=== PATIENT | female | born 1950 | race Caucasian/White ===

== ENCOUNTER 2017-06-13 12:18 | Observation (INO) ==
--- NOTE | 2017-06-13 12:39 | Emergency Department Note ---
Disposition Clinical Impression: Chest pain Qualifiers: Chest pain type: unspecified Qualified Code(s): R07.9 - Chest pain, unspecified Disposition: Admitted As Inpatient Condition: Good Chest Pain HPI - General Chief Complaint: ED Abdominal Pain Stated Complaint: abd pain/back pain Time Seen by Provider: 06/13/17 12:26 Source: patient, family Mode of arrival: private vehicle Limitations: no limitations Vital Signs Reviewed: Yes Nursing Notes Reviewed: Yes - History of Present Illness HPI Narrative: 66-year-old female history of hyperlipidemia, status post trigger finger repair yesterday who presents to the ER via private vehicle due to chest pain. Patient states that she woke up this morning with pain underneath her breasts. States that it felt like some pressure and radiated around to her back. She denies any injury. Denies a prior history of this. States she had a stress test within maybe the last 5 years that was normal just for physical. She reports that at worst it was 8/10 and now is 5/10 without any intervention. She did notice that she felt lightheaded, dizzy and broke onto a sweat when it started. Denies prior history of CAD. No nausea vomiting or diarrhea. No abdominal pain. No other complaints. Pt complaint: chest pain Onset (ago): hour(s) Duration: constant Onset: during rest Pain Location: substernal Severity scale (1-10): 6 Quality: heaviness Pain Radiation: back Improves with: nothing Worsens with: nothing Associated symptoms: Reports: diaphoresis, dyspnea. Denies: nausea, vomiting Treatments prior to arrival chest pain: none - Related Data On Oral Contraceptives: No Home Medications Medication Instructions Recorded Confirmed Aspirin Enteric Coated [Aspirin EC] 81 mg PO QPM 01/23/15 01/23/15 Citalopram [CeleXA] 20 mg PO QPM 01/23/15 01/23/15 Omeprazole [PriLOSEC] 20 mg PO QPM 01/23/15 01/23/15 Previous Rx's Medication Instructions Recorded Fenofibrate [Tricor] 54 mg PO DAILY #30 tablet 01/27/15 MetroNIDAZOLE [Flagyl] 250 mg PO TID #6 tablet 01/27/15 Ondansetron ODT [Zofran ODT] 4 mg SL Q4HR #7 tab.rapdis 01/27/15 OxyCODONE/APAP 5/325 [Percocet 1 each PO Q4HR #5 tablet 01/27/15 5/325] HYDROcodone/Acet 5/325 mg [[place] 1 tab PO Q6H PRN #12 tab 06/12/17 5-325 mg] Allergies Allergy/AdvReac Type Severity Reaction Status Date / Time No Known Allergies Allergy Verified 06/13/17 12:20 All systems ED: reviewed and negative except as stated. Constitutional: Denies: fever Cardiovascular: Reports: chest pain Respiratory: Reports: dyspnea. Denies: cough Gastrointestinal: Denies: abdominal pain, nausea, vomiting, diarrhea Chest Pain PMH - Past Medical History Medical history: Reports: GERD, hyperlipidemia Surgical history: Reports: cholecystectomy, other Psychiatric history: Reports: no psych history MANAGER QUANTITATIVE history: Reports: no MANAGER QUANTITATIVE history - Social History Smoking Status: Never smoker Alcohol use: Reports: none Drug use: Reports: none Physical Exam - General Limitations: no limitations General appearance: alert, in no apparent distress - Head Head exam: atraumatic, normocephalic - Eye Eye exam: Present: normal appearance - ENT ENT exam: normal exam - Neck Neck exam: Present: normal inspection - Chest Chest inspection: Present: normal inspection, symmetric chest wall rise - Respiratory Respiratory exam: Present: normal lung sounds bilaterally - Cardiovascular Cardiovascular exam: Present: regular rate, normal rhythm, normal heart sounds - Abdominal Exam Abdominal exam: Present: soft, Non-Tender. Absent: tenderness - Extremities Exam Extremities exam: Present: normal inspection, full ROM - Expanded Upper Extremity Exam Shoulder exam: Present: normal inspection, full ROM Arm exam: Present: normal inspection, full ROM Elbow exam: Present: normal inspection, full ROM Forearm/Wrist exam: Present: normal inspection, full ROM Hand exam: Present: normal inspection, full ROM - Expanded Lower Extremity Exam Hip/Pelvis exam: Present: normal inspection, full ROM Upper leg exam: Present: normal inspection, full ROM Knee exam: Present: normal inspection, full ROM Lower leg exam: Present: normal inspection, full ROM Ankle exam: Present: normal inspection, full ROM Foot/toe exam: Present: normal inspection, full ROM - Skin Skin exam: Present: warm, dry Course Course Narrative: Patient seen and examined. Vital signs reviewed. We will get an EKG, chest x- ray as well as labs including troponin. Patient also given aspirin. - Reevaluation(s) Reevaluation #1: Discussed results of imaging and labs with the patient. She reports she is currently chest pain-free. She was hesitant to stay at first but I discussed risks of going home and likely outcome if she was admitted. Reported she would likely have her troponins cycled plus or minus a stress test. She is agreeable with admission to the hospital. Vital Signs Temperature 97.6 F 06/13/17 12:20 Pulse Rate 84 06/13/17 12:20 Respiratory Rate 16 06/13/17 12:20 Blood Pressure 122/75 06/13/17 12:20 O2 Sat by Pulse Oximetry 99 06/13/17 12:20 Temperature 97.6 F 06/13/17 12:20 Pulse Rate 84 06/13/17 12:20 Respiratory Rate 16 06/13/17 12:20 Blood Pressure 122/75 06/13/17 12:20 O2 Sat by Pulse Oximetry 99 06/13/17 12:20 Oxygen Delivery Oxygen Delivery Room Air Chest Pain - MDM Narrative Medical decision making narrative: 66-year-old female presents to the ER due to chest pain as well as dizziness lightheadedness and diaphoresis. Started this morning. No prior history of coronary artery disease. She does report a stress test that was negative several years ago performed as a routine screen. Pain has resolved at this time. She was given 1 aspirin here. Initial workup is negative. Admitted to the hospitalist service for chest pain rule out. - Lab Data Lab results reviewed: Yes I reviewed the patient's lab results. Result diagrams: 06/13/17 12:43 06/13/17 12:43 Lab Results 06/13/17 06/13/17 06/13/17 Range/Units 12:43 12:43 12:43 WBC (4.3-11.1) K/mcL RBC (3.82-4.97) M/mcL Hgb (11.5-15.4) g/dL Hct (35.3-44.9) % MCV (83.0-100.0) fL MCH (28.0-33.3) pg MCHC (31.6-35.5) g/dL RDW (11.5-14.5) % Plt Count (140-400) K/mcL MPV (9.4-12.4) fL Immature Gran % (0-4) % Seg Neutrophils % % Lymphocytes % % Monocytes % % Eosinophils % % Basophils % % Neutrophils # (1.6-8.9) K/mcL Lymphocytes # (0.6-4.6) K/mcL Monocytes # (0.0-1.3) K/mcL Eosinophils # (0.0-0.6) K/mcL Basophils # (0.0-0.2) K/mcL PT 11.1 (9.4-12.1) Seconds INR 1.0 APTT 26.7 (26.0-36.0) Seconds Sodium (136-145) mEq/L Potassium (3.5-5.1) mEq/L Chloride (98-107) mEq/L Carbon Dioxide (23-29) mEq/L BUN (8-23) mg/dL Creatinine (0.60-1.20) mg/dL Est GFR ( Amer) (> 60) Est GFR (Non-Af Amer) (> 60) BUN/Creatinine Ratio (6-26) Glucose (70-105) mg/dL Calculated Osmolality (280-300) Calcium (8.6-10.3) mg/dL Total Bilirubin 0.6 (0.3-1.0) mg/dL Direct Bilirubin 0.1 (0.0-0.2) mg/dL Indirect Bilirubin 0.5 (0.0-1.2) mg/dL AST 30 (13-39) Units/L ALT 23 (7-52) Units/L Alkaline Phosphatase 70 (34-104) Units/L Troponin I (< 0.04) ng/mL B-Natriuretic Peptide 21 (Less than 100) pg/mL Serum Total Protein 6.9 (6.4-8.9) g/dL Albumin 4.7 (3.5-5.7) g/dL Globulin 2.2 L (2.4-3.5) g/dL Albumin/Globulin Ratio 2.1 (1.1-2.2) Lipase (11-82) Units/L 06/13/17 06/13/17 06/13/17 Range/Units 12:43 12:43 12:43 WBC 9.4 (4.3-11.1) K/mcL RBC 4.50 (3.82-4.97) M/mcL Hgb 13.3 (11.5-15.4) g/dL Hct 41.1 (35.3-44.9) % MCV 91.3 (83.0-100.0) fL MCH 29.6 (28.0-33.3) pg MCHC 32.4 (31.6-35.5) g/dL RDW 12.7 (11.5-14.5) % Plt Count 211 (140-400) K/mcL MPV 9.5 (9.4-12.4) fL Immature Gran % 0.3 (0-4) % Seg Neutrophils % 80.5 % Lymphocytes % 13.5 % Monocytes % 5.1 % Eosinophils % 0.2 % Basophils % 0.4 % Neutrophils # 7.6 (1.6-8.9) K/mcL Lymphocytes # 1.3 (0.6-4.6) K/mcL Monocytes # 0.5 (0.0-1.3) K/mcL Eosinophils # 0.0 (0.0-0.6) K/mcL Basophils # 0.0 (0.0-0.2) K/mcL PT (9.4-12.1) Seconds INR APTT (26.0-36.0) Seconds Sodium 135 L (136-145) mEq/L Potassium 4.0 (3.5-5.1) mEq/L Chloride 104 (98-107) mEq/L Carbon Dioxide 24 (23-29) mEq/L BUN 10 (8-23) mg/dL Creatinine 0.62 (0.60-1.20) mg/dL Est GFR ( Amer) > 60 (> 60) Est GFR (Non-Af Amer) > 60 (> 60) BUN/Creatinine Ratio 16 (6-26) Glucose 134 H (70-105) mg/dL Calculated Osmolality 281 (280-300) Calcium 9.2 (8.6-10.3) mg/dL Total Bilirubin (0.3-1.0) mg/dL Direct Bilirubin (0.0-0.2) mg/dL Indirect Bilirubin (0.0-1.2) mg/dL AST (13-39) Units/L ALT (7-52) Units/L Alkaline Phosphatase (34-104) Units/L Troponin I < 0.03 (< 0.04) ng/mL B-Natriuretic Peptide (Less than 100) pg/mL Serum Total Protein (6.4-8.9) g/dL Albumin (3.5-5.7) g/dL Globulin (2.4-3.5) g/dL Albumin/Globulin Ratio (1.1-2.2) Lipase 19 (11-82) Units/L - Radiology Data Radiology results reviewed: Yes I reviewed the patient's radiology results. Chest X-Ray 06/13/17 12:33 IMPRESSION: Negative portable study. D/ / Serina Nieto Cha, MD / Serina Nieto Cha, MD Interpreting Provider: Serina Nieto Cha, MD - EKG Data EKG attestation: Yes I reviewed and interpreted this EKG. EKG results narrative: EKG demonstrates sinus rhythm with a rate of 71 beats minute. Normal axis. Normal intervals. Normal R-wave progression. No gross ST elevations or depressions. No acute ischemic findings. No significant changes from previous EKG dated 01/22/15. Heart Score - Score History: Moderately Suspicious EKG: Non Specific repolarisation Disturbance Age: Greater than 65 Risk Factors: 1-2 risk factors Troponin: Less than normal limit HEART Score Total: 5 S.B.A.R. - S.B.A.R. Situation: Demographics, MOA Background: Presenting Complaint, Relevant PMH, Meds, & Allergies Assessment: Vital Signs, Course and respsone to treatment, Exam Concerns, Patient/Family Expectation, Pertinant Lab Results Recommendation: Barrier(s) to disposition, Recommendation based on pending studies, treatments, or consults S.B.A.R. Report Given to: Dr. Jackson S.B.A.RUmu Repor Time: 14:35 Attestation Statement - Attestation Attestation: I examined this patient and my medical decision-making was reviewed with the Resident Physician, Dr. Cao. I agree with the documented findings, disposition and treatment plan as described except to the extent set forth below. Patient is a 66-year-old white female with a history of hyperlipidemia who presents to the emergency room today with an episode of chest pain that began this morning shortly after waking. Patient describes pain in her substernal area that radiated around both sides of her chest wall to her back. Patient states she got out of bed and became lightheaded as the pain worsened in severity became short of breath and diaphoretic. Patient was still feeling the pain at a 5 out of 10 in severity on my assessment. Described as a dull ache. Patient with no prior history of cardiac disease, has had a remote stress test in the past that she states was normal. Patient is 24 hours status post trigger finger surgery that she had by Dr. Lemons. Patient denies any palpitations, no syncope, no hemoptysis or cough. I agree with patient's physical exam findings as documented. While at rest after arriving to the emergency Department patient states pain has improved and is almost completely gone. Patient was given baby aspirin. EKG shows normal sinus rhythm without acute ischemia. Labs were sent and chest x-ray was obtained. All of patient's labs including troponin were within normal limits and chest x-ray is unremarkable. Patient's heart score equals 6 and had very concerning symptoms today and feel patient would benefit from further evaluation and provocative testing. Patient agrees with admission to the hospital. After speaking with the hospitalist patient came to the nurse's station clutching her chest stating that her pain had returned and she was pale and diaphoretic. Patient was assisted back to bed vitals were taken, vital signs within normal limits, repeat EKG was obtained showing a normal sinus rhythm acute ST or T-wave changes. Patient was started on nitroglycerin trial and after first sublingual nitroglycerin patient went from an 8 to a 6 in severity. Currently completing trial vitals remained stable we will continue with plan for admission to the hospitalist service.
[2017-06-13 12:53] LABS: Basophils % 0.4 %; Eosinophils % 0.2 %; Hematocrit 41.1 % (35.3-44.9); Hemoglobin 13.3 g/dL (11.5-15.4); Immature Granulocytes % 0.3 % (0-4); Lymphocytes # 1.3 K/mcL (0.6-4.6); Lymphocytes % 13.5 %; Mean Corpuscular HGB Conc 32.4 g/dL (31.6-35.5); Mean Corpuscular Hemoglobin 29.6 pg (28.0-33.3); Mean Corpuscular Volume 91.3 fL (83.0-100.0); Mean Platelet Volume 9.5 fL (9.4-12.4); Monocytes # 0.5 K/mcL (0.0-1.3); Monocytes % 5.1 %; Neutrophils # 7.6 K/mcL (1.6-8.9); Platelet Count 211 K/mcL (140-400); Red Cell Distribution Width 12.7 % (11.5-14.5); Segmented Neutrophils % 80.5 %
[2017-06-13 13:01] LABS: Prothrombin Time 11.1 Seconds (9.4-12.1)
[2017-06-13 13:03] LABS: Activated Partial Thrombo Time 26.7 Seconds (26.0-36.0)
[2017-06-13] MEDS ORDERED: Aspirin 81 MG TAB.CHEW PO ONE (13:05)
[2017-06-13 13:12] LABS: Albumin 4.7 g/dL (3.5-5.7); Albumin/Globulin Ratio 2.1 (1.1-2.2); Bilirubin,Direct 0.1 mg/dL (0.0-0.2); Bilirubin,Indirect 0.5 mg/dL (0.0-1.2); Bilirubin,Total 0.6 mg/dL (0.3-1.0); Globulin 2.2 g/dL (2.4-3.5); Total Protein 6.9 g/dL (6.4-8.9)
[2017-06-13 13:13] LABS: BUN/Creatinine Ratio 16 (6-26); Blood Urea Nitrogen 10 mg/dL (8-23); Calcium 9.2 mg/dL (8.6-10.3); Carbon Dioxide 24 mEq/L (23-29); Chloride 104 mEq/L (98-107); Glucose 134 mg/dL (70-105); Lipase 19 Units/L (11-82); Osmolality,Calculated 281 (280-300); Sodium 135 mEq/L (136-145); eGFR For African Americans > 60 (> 60); eGFR For Non-African Americans > 60 (> 60)
[2017-06-13] MEDS ORDERED: Nitroglycerin 0.4 MG TAB.SUBL SL ONE (14:52)
[2017-06-13] MEDS ORDERED: 0.9 % Sodium Chloride 500 ML IVC ONE (15:02)
[2017-06-13] MEDS ORDERED: Nitroglycerin 0.4 MG TAB.SUBL SL PRN (15:02)
[2017-06-13] MEDS ORDERED: Nitroglycerin 1 INCH/GM PACKET TP ONE (15:15)
--- NOTE | 2017-06-13 15:38 | Event Note ---
Date of Encounter: 06/13/17 Time of Encounter: 15:37 1. Chest pain, nonspecific, nitroglycerin helped Continue aspirin, nitroglycerin as needed, pain control with OxyCodone Statin, check lipid panel Telemetry, monitor troponins Schedule a stress test and echocardiogram for the morning 2. Depression, stable 3. Hyperlipidemia 4. History of pancreatitis 5. GERD 6. Recent right hand trigger finger surgeries by Dr. Lemons Omeprazole for GI prophylaxis and Lovenox for DVT prophylaxis. The patient will be admitted for observation. Full code. Time spent on this admission 40 minutes H&P will be completed by Mark Smith NP
[2017-06-13] MEDS ORDERED: Sennosides 8.6 MG TABLET PO PRN (15:48)
[2017-06-13] MEDS ORDERED: Naloxone 0.4 MG/ML INJ IVP PRN (15:50)
[2017-06-13] MEDS ORDERED: *HR* OxyCODONE/APAP 5/325 TABLET PO PRN (15:53)
--- NOTE | 2017-06-13 15:59 | Internal Med History&Physical ---
<Mark Smith - Last Filed: 06/13/17 15:54> Date of Encounter: 06/13/17 Time of Encounter: 15:54 Assessment and Plan (1) Chest pain Current visit: Yes Status: Acute ASSESSMENT: - Atypical Chest pain of unclear etiology, she is describing the chest pain as pressure in the epigastrium radiating around and under her breasts to the mid back. The chest pain improved with nitroglycerin. No prior history of coronary artery disease or ID. Last cardiac workup in 2012 found to be negative for ischemia or wall motion abnormalities and ejection fraction of 60% . Chest x-ray negative, initial troponin negative. Patient has a history of hyperlipidemia. Additionally, she has a history of GERD; and giving the clinical presentation of the chest pain could also be of a GI cause. However we will admit her for observation for rule out of ACS PLAN: - cardiac enzymes x 2 q 6 hr - EKG with no ischemia noted - ASA - O2 by NC to keep SpO2 greater than 92% - CBCD, BMP in AM - Fasting lipids - Resume home medications - Heparin 5000 U SQ BID - 2D Echo -Cardiac diet, nothing by mouth after midnight -Stress test in the morning -Pain control with oxycodone -Telemetry Qualifiers: Chest pain type: unspecified Qualified Code(s): R07.9 - Chest pain, unspecified (2) GERD (gastroesophageal reflux disease) Current visit: Yes Status: Acute Pantoprazole Qualifiers: Esophagitis presence: esophagitis presence not specified Qualified Code(s) : K21.9 - Gastro-esophageal reflux disease without esophagitis (3) HLD (hyperlipidemia) Current visit: Yes Status: Chronic Continue statin Qualifiers: Hyperlipidemia type: unspecified Qualified Code(s): E78.5 - Hyperlipidemia , unspecified (4) DVT prophylaxis Current visit: Yes Status: Acute Heprin 5000 units SC BID Internal Medicine - H&P: HPI Chief complaint: CHEST PAIN Admitted From: Home Plans for Post Hospital Care: Home History of present illness: Ms. Bah is a 66 year old female with PMH of pancreatitis, GERD and HRT. She worsens to [facility] today with substernal chest pressure with radiation around to the back which occurred this morning for a couple of episodes lasting approximately 10 minutes per episode. She denies any exacerbating or alleviating factors and reports the pain 12/25 on arrival to the ED. She describes the chest the discomfort as pressure beneath her breasts with radiation around to her back. Associated symptoms include diaphoresis, and nausea. She denies any fever, chills, cough, shortness of breath, vomiting, diarrhea, abdominal pain, tearing sensation, unilateral extremity swelling or pain. Her symptoms had initially resolved prior to arrival, however, while in the ED they returned. A nitro patch was applied with resolution of symptoms. She is currently resting comfortably in bed and chest pain-free. She denies any prior history of cardiac disease. Her last cardiac workup was in 2012 and found to be negative. Past Med Surg Social Fam HX - Past Medical History Medical history: GERD, hyperlipidemia Psychiatric history: no psych history - Past Surgical History Surgical History: cholecystectomy, other - Social History Smoking Status: Never smoker Smokeless Tobacco Status: No Alcohol use: none Drug use: none - Family History Father Cause of : Aneurysm Mother Cause of : Cancer Internal Medicine - H&P: Meds Acetaminophen [Tylenol] 500 mg PO Q6HR PRN 06/13/17 [History] Cholecalciferol (Vitamin D3) [Vitamin D] 2,000 unit PO DAILY 06/13/17 [History] Citalopram Hydrobromide [Citalopram HBr] 40 mg PO DAILY 06/13/17 [History] Ferrous Sulfate [Iron] 325 mg PO DAILY 06/13/17 [History] Ibuprofen [Motrin] 400 - 600 mg PO BID PRN 06/13/17 [History] Krill/Om-3/Dha/Epa/Phospho/Ast [Krill Oil 1,000 mg Softgel] 1 tab PO DAILY 06/13 [History] Lactobacillus Combination No.8 [Adult Probiotic] 1 tab PO DAILY 06/13/17 [ History] Pantoprazole Sodium [Protonix] 20 mg PO DAILY 06/13/17 [History] Rosuvastatin Calcium [Rosuvastatin Calcium] 20 mg PO DAILY 06/13/17 [History] Sennosides [Senna] 8.6 mg PO DAILY PRN 06/13/17 [History] 3 Allergy/AdvReac Type Severity Reaction Status Date / Time Amoxicillin [From Augmentin] Allergy See Verified 06/13/17 15:01 Comments clavulanic acid Allergy See Verified 06/13/17 15:01 [From Augmentin] Comments All Systems PM: A 10-system review of systems was performed and is negative for pertinent findings except as documented above in the HPI. - Constitutional Constitutional: no chills, no fever(s), no night sweats - EENT Eyes: no change in vision, no discharge, no pain, no photophobia Ears: no ear discharge, no ear pain, no tinnitus Nose, mouth and throat: no dysphagia, no nasal discharge, no neck pain, no sore throat - Cardiovascular Cardiovascular ROS IM: as per HPI - Respiratory Respiratory: as per HPI - Gastrointestinal Gastrointestinal: no abdominal pain, no diarrhea, no hematemesis, no hematochezia, no melena, no nausea, no vomiting - Genitourinary Genitourinary: no change in urinary stream, no dysuria, no flank pain, no hematuria - Musculoskeletal Musculoskeletal ROS IM: no numbness, no tingling - Integumentary Integumentary IM: no rash, no unusual bruising - Neurological Neurological ROS: no confusion, no convulsions, no focal weakness, no numbness, no tingling, no tremor(s) - Hematologic/Lymphatic Hematologic/Lymphatic: no easy bruising - Constitutional Vitals: Temp Pulse Resp BP Pulse Ox 97.6 F 84 18 118/73 99 06/13/17 12:20 06/13/17 12:20 06/13/17 15:25 06/13/17 15:25 06/13/17 12:20 General appearance: Present: cooperative, A&O X 3, no acute distress, answers questions appropriately - Head Head exam: Present: atraumatic, normocephalic - Eye Eye exam: Present: PERRL, conjuntiva pink, sclera anicteric Pupils: Present: PERRL - Neck Neck exam general surgery: Present: supple, trachea midline. Absent: lymphadenopathy - Respiratory Respiratory exam: Present: CTAB. Absent: accessory muscle use, rales, rhonchi, wheezes - Cardiovascular Cardiovascular exam: Present: RRR, +S1, +S2. Absent: diastolic murmur, gallop, rubs, systolic murmur - GI/Abdominal GI/Abdominal exam: Present: normal bowel sounds, soft, no peritoneal signs. Absent: distended, tenderness - Extremities Exam Extremities exam: Present: warm, radial pulses palpable and symmetrical. Absent : calf tenderness, cyanotic, pedal edema - Neurological Exam Neurological exam: Present: CN II-XII intact, oriented X3, no focal deficits. Absent: pronater drift, facial droop, speech deficit - Skin Skin exam: Present: dry, intact Internal Med - H&P Results - Labs CBC & Chem 7: 06/13/17 12:43 06/13/17 12:43 - EKG Data -: EKG Interpreted by Myself EKG shows normal: sinus rhythm - Impressions Impressions Chest X-Ray 06/13/17 12:33 IMPRESSION: Negative portable study. D/ / Serina Nieto Cha, MD / Serina Nieto Cha, MD Interpreting Provider: Serina Nieto Cha, MD <Lul Bass - Last Filed: 06/13/17 20:08> Date of Encounter: 06/13/17 Internal Medicine - H&P: HPI History of present illness: Ms. Bah is a 66 year old female All Systems PM: A 10-system review of systems was performed and is negative for pertinent findings except as documented above in the HPI. - Constitutional Vitals: Temp Pulse Resp BP Pulse Ox 98.4 F 89 17 109/68 96 06/13/17 19:59 06/13/17 19:59 06/13/17 19:59 06/13/17 19:59 06/13/17 19:59 Internal Med - H&P Results - Labs CBC & Chem 7: 06/13/17 12:43 06/13/17 12:43 Labs: Cardiac Enzymes 06/13/17 Range/Units 17:38 Troponin I < 0.03 (< 0.04) ng/mL - Attending Attestation 1. Chest pain, nonspecific, nitroglycerin helped Continue aspirin, nitroglycerin as needed, pain control with OxyCodone Statin, check lipid panel Telemetry, monitor troponins Schedule a stress test and echocardiogram for the morning 2. Depression, stable 3. Hyperlipidemia 4. History of pancreatitis 5. GERD 6. Recent right hand trigger finger surgeries by Dr. Lemons Omeprazole for GI prophylaxis and Lovenox for DVT prophylaxis. The patient will be admitted for observation. Full code. Time spent on this admission 40 minutes I have personally performed a face to face evaluation on this patient. I have reviewed and agree with the care plan. History and Exam by me shows:
[2017-06-13] MEDS: *HR* Heparin 5,000 UNIT/ML VIAL SQ SCH (18:48)
[2017-06-14 01:22] LABS: Hematocrit 37.2 % (35.3-44.9); Immature Platelets 1.8 % (1.1-6.1); Mean Corpuscular HGB Conc 32.3 g/dL (31.6-35.5); Mean Corpuscular Hemoglobin 29.3 pg (28.0-33.3); Mean Platelet Volume 9.8 fL (9.4-12.4); Red Blood Count 4.09 M/mcL (3.82-4.97); Red Cell Distribution Width 12.8 % (11.5-14.5)
[2017-06-14 02:04] LABS: BUN/Creatinine Ratio 16 (6-26); Blood Urea Nitrogen 12 mg/dL (8-23); Calcium 8.9 mg/dL (8.6-10.3); Carbon Dioxide 26 mEq/L (23-29); Chloride 108 mEq/L (98-107); Chol/HDL Ratio 4.5 (0-4.9); Glucose 107 mg/dL (70-105); Osmolality,Calculated 290 (280-300); Potassium 4.2 mEq/L (3.5-5.1); Sodium 140 mEq/L (136-145); eGFR For African Americans > 60 (> 60); eGFR For Non-African Americans > 60 (> 60)
[2017-06-14] MEDS: *HR* Heparin 5,000 UNIT/ML VIAL SQ SCH ×2 (05:29→18:41)
[2017-06-14] MEDS: Cholecalciferol (D-3) 1,000 UNIT TABLET PO SCH (09:04)
[2017-06-14] MEDS: Aspirin 81 MG TAB.CHEW PO SCH (09:04)
--- NOTE | 2017-06-14 10:55 | Gastroenterology Consult Note ---
Date of Encounter: 06/14/17 Time of Encounter: 10:55 - Time Spent With Patient Total time spent is greater than 50% in coordination of care (as documented) at patient's floor/unit and/or counseling patient: GI History of Present Illness - Data of Consult Requesting Physician: Libby Keating CNP - Consult Narrative History of present illness: Ms. Bah is a 66 year old female Past Med Surg Social Fam HX - Past Medical History Medical history: GERD, hyperlipidemia Psychiatric history: no psych history - Past Surgical History Surgical History: cholecystectomy, other - Social History Smoking Status: Never smoker Smokeless Tobacco Status: No Alcohol use: none Drug use: none - Family History Father Cause of : Aneurysm Mother Cause of : Cancer - Constitutional Vitals: Temp Pulse Resp BP Pulse Ox 98 F 78 16 119/70 98 06/14/17 10:49 06/14/17 10:49 06/14/17 10:49 06/14/17 10:49 06/14/17 10:49 Results - Labs CBC & Chem 7: 06/14/17 00:33 06/14/17 00:33 Labs: Last Result Calcium 8.9 mg/dL (8.6-10.3) 06/14/17 00:33 Troponin I < 0.03 ng/mL (< 0.04) 06/14/17 00:33 Triglycerides 258 mg/dL (< 150) H 06/14/17 00:33 Entire Visit Hgb 12.0 g/dL (11.5-15.4) 06/14/17 00:33 Hct 37.2 % (35.3-44.9) 06/14/17 00:33 PT 11.1 Seconds (9.4-12.1) 06/13/17 12:43 Total Bilirubin 0.6 mg/dL (0.3-1.0) 06/13/17 12:43 AST 30 Units/L (13-39) 06/13/17 12:43 ALT 23 Units/L (7-52) 06/13/17 12:43 Lipase 19 Units/L (11-82) 06/13/17 12:43 - ABG ABG results: PT/INR, D-dimer PT 11.1 Seconds (9.4-12.1) 06/13/17 12:43 Consult Discharge Plan - Plan Referrals: Alber Harrison MD [Primary Care Provider] -
[2017-06-14] MEDS: ALPRAZolam 0.5 MG TABLET PO PRN ×2 (11:34→20:59)
--- NOTE | 2017-06-14 17:31 | Internal Med Progress Note ---
Date of Encounter: 06/14/17 Time of Encounter: 17:29 - Assessment and plan (1) Dysphagia Current Visit: Yes Status: Acute Assessment and plan: Patient reports sticking in her throat and difficulty getting food to pass She states this does cause her discomfort comfort GI consult with possible EGD tomorrow if stress test normal Qualifiers: Dysphagia type: unspecified Qualified Code(s): R13.10 - Dysphagia, unspecified (2) Chest pain Current Visit: Yes Status: Acute Assessment and plan: Atypical Chest pain of unclear etiology, she described the chest pain as pressure in the epigastrium radiating around and under her breasts to the mid back like a band or a bra that is too tight. The chest pain improved with nitroglycerin although she did develop a severe headache. No prior history of coronary artery disease or [place]. Last cardiac workup in 2012 found to be negative for ischemia or wall motion abnormalities and ejection fraction of 60% . Chest x-ray negative, troponins negative. Patient has a history of hyperlipidemia and GERD; giving the clinical presentation of the chest pain could also be of a GI cause. Need to rule out of ACS EKG with no ischemia noted Continue aspirin Now on room air Fasting lipids with triglycerides of 258 and HDL 37 Resume home medications Heparin 5000 U SQ BID 2D Echo Cardiac diet, nothing by mouth after midnight tonight Stress test in the morning Telemetry Qualifiers: Chest pain type: unspecified Qualified Code(s): R07.9 - Chest pain, unspecified (3) GERD (gastroesophageal reflux disease) Current Visit: Yes Status: Acute Assessment and plan: GI consult with plan for EGD unless positive stress Qualifiers: Esophagitis presence: esophagitis presence not specified Qualified Code(s) : K21.9 - Gastro-esophageal reflux disease without esophagitis (4) HLD (hyperlipidemia) Current Visit: Yes Status: Chronic Assessment and plan: Reviewed lipid panel continue home medication Qualifiers: Hyperlipidemia type: unspecified Qualified Code(s): E78.5 - Hyperlipidemia , unspecified - Subjective Interval history: Patient was very reluctant to stay for her stress testing in the morning explained that even though her troponins were negative etc. that the best thing would be to put this behind her is to have the stress test and go from there. She also reports some food sticking in her throat that has been going on for a little while that causes her some discomfort. Told her I would have GI see her and see if we can arrange to have that checked out why she was here. She is agreeable to staying now. She became emotional and tearful while sharing some stresses at home. She denies any chest pain, shortness of breath, fever, chills , abdominal pain or changes in bowel or bladder. She did have a headache through the night but now denies dizziness or headache. - Constitutional Vitals: Temp Pulse Resp BP Pulse Ox 98.3 F 74 16 116/73 95 06/14/17 15:26 06/14/17 15:26 06/14/17 15:26 06/14/17 15:26 06/14/17 15:26 General appearance: Present: cooperative, A&O X 3, pleasant, no acute distress, answers questions appropriately - Head Head exam: Present: atraumatic, normocephalic - Eye Eye exam: Present: PERRL, conjuntiva pink, sclera anicteric Pupils: Present: PERRL - Neck Neck exam general surgery: Present: supple, trachea midline. Absent: lymphadenopathy - Respiratory Respiratory exam: Present: CTAB. Absent: accessory muscle use, rales, rhonchi, wheezes - Cardiovascular Cardiovascular exam: Present: RRR, +S1, +S2. Absent: diastolic murmur, gallop, rubs, systolic murmur - GI/Abdominal GI/Abdominal exam: Present: normal bowel sounds, soft, no peritoneal signs. Absent: distended, tenderness - Extremities Exam Extremities exam: Present: warm, radial pulses palpable and symmetrical. Absent : calf tenderness, cyanotic, pedal edema - Neurological Exam Neurological exam: Present: alert, CN II-XII intact, oriented X3, no focal deficits. Absent: pronater drift, facial droop, speech deficit - Skin Skin exam: Present: dry, intact, warm Internal Medicine: Result - Labs CBC & Chem 7: 06/14/17 00:33 06/14/17 00:33 Labs: Short CBC 06/14/17 Range/Units 00:33 WBC 8.4 (4.3-11.1) K/mcL Hgb 12.0 (11.5-15.4) g/dL Hct 37.2 (35.3-44.9) % Plt Count 211 (140-400) K/mcL BMP 06/14/17 00:33 Sodium 140 Potassium 4.2 Chloride 108 H Carbon Dioxide 26 BUN 12 Creatinine 0.73 Glucose 107 H Calcium 8.9 Cardiac Enzymes 06/13/17 06/14/17 Range/Units 17:38 00:33 Troponin I < 0.03 < 0.03 (< 0.04) ng/mL - ABG Interpretation ABG results: PT/INR, D-dimer PT 11.1 Seconds (9.4-12.1) 06/13/17 12:43 Consult Discharge Plan - Plan Referrals: Alber Harrison MD [Primary Care Provider] -
[2017-06-15] MEDS: *HR* Heparin 5,000 UNIT/ML VIAL SQ SCH (05:13)
[2017-06-15] MEDS ORDERED: Regadenoson 0.4 MG/5 ML SYRINGE IVP ONE (06:36)
--- NOTE | 2017-06-15 13:09 | Gastroenterology Consult Note ---
<Vilma Mejia - Last Filed: 06/15/17 13:06> Date of Encounter: 06/15/17 Time of Encounter: 12:50 - Assessment and plan (1) Chest pain Current Visit: Yes Status: Acute Assessment and plan: Pt presents with chest pain. Troponins were negative, she has stress echo ordered for today. If negative will proceed with EGD as pt is also complaining of GERD, dysphagia and odynophagia. Qualifiers: Chest pain type: unspecified Qualified Code(s): R07.9 - Chest pain, unspecified (2) GERD (gastroesophageal reflux disease) Current Visit: Yes Status: Acute Assessment and plan: Continue PPI, may need increased dose Qualifiers: Esophagitis presence: esophagitis presence not specified Qualified Code(s) : K21.9 - Gastro-esophageal reflux disease without esophagitis (3) Pancreatitis Current Visit: No Status: Chronic Assessment and plan: Pt has a history of pancreatitis but lipase and LFTs are normal. - Time Spent With Patient Total time spent is greater than 50% in coordination of care (as documented) at patient's floor/unit and/or counseling patient: GI History of Present Illness - Data of Consult Patient: new to practice Consult date: 06/15/17 Requesting Physician: Libby Keating CNP - Consult Narrative Reason for consult: chest pain/GERD History of present illness: Ms. Bah is a 66 year old female with PMH of pancreatitis, GERD and HRT. She worsens to [facility] today with substernal chest pressure with radiation around to the back for a couple of episodes lasting approximately 10 minutes per episode. She denies any exacerbating or alleviating factors and reports the pain 8/10 on arrival to the ED. She describes the chest the discomfort as pressure beneath her breasts with radiation around to her back. Associated symptoms include diaphoresis, and nausea. She denies any fever, chills, cough, shortness of breath, vomiting, diarrhea, abdominal pain, tearing sensation, unilateral extremity swelling or pain. Her symptoms had initially resolved prior to arrival, however, while in the ED they returned. A nitro patch was applied with resolution of symptoms. She also complains of dsyphagia and food sticking in her throat. She does complain of GERD and occasional regurgitation. She denies any prior history of cardiac disease. Her last cardiac workup was in 2012 and found to be negative. Hgb 12.0, total bili 0.6, AST 30, ALT 23, alkaline phosphatase 70. She has a stress ECHo ordered for today. Colonoscopy: 02/2015 Cal[place] diverticulosis EGD: 03/[address] Layton WNL NSAIDS/ASA: ASA v81 Anticoagulants: Heparin Last dose 18406/14/17 Past Med Surg Social Fam HX - Past Medical History Medical history: GERD, hyperlipidemia Psychiatric history: no psych history - Past Surgical History Surgical History: cholecystectomy, other - Social History Smoking Status: Never smoker Smokeless Tobacco Status: No Alcohol use: none Drug use: none - Family History Father Cause of : Aneurysm Mother Cause of : Cancer Review of Systems: GI: as per TEL[facility] GENERAL: denies fever, has some chills EYES: denies yellow discoloration ENT: see hpi RESP: No Shortness of breath with exertion : denies change in color of urine NEURO: denies any weakness HEME: Denies any bruising MS: joint pain, and swelling right hand from recent surgical procedure DERM: denies rash or itching PSYCH: history of anxiety or depression - Constitutional Vitals: Temp Pulse Resp BP Pulse Ox 97.9 F 72 16 119/76 93 06/15/17 12:20 06/15/17 12:20 06/15/17 12:20 06/15/17 12:20 06/15/17 12:20 Exam: CONSTITUTIONAL:~alert, no acute distress.~HEAD:~normocephalic.~EYES:~no jaundice.~NECK:~no obvious swelling.~HEART:~regular rate and rhythm, no murmurs. ~LUNGS:~bilateral good air entry.~ABDOMEN:~non distended, soft, non tender, no masses palpable, no organomegaly.~RECTAL EXAM:~Deferred.~EXTREMITIES:~no clubbing, cyanosis or edema.~SKIN:~no stigmata of chronic liver disease.~ NEUROLOGIC:~no obvious focal defect.~~~~ Results - Labs CBC & Chem 7: 06/14/17 00:33 06/14/17 00:33 Labs: Last Result Calcium 8.9 mg/dL (8.6-10.3) 06/14/17 00:33 Troponin I < 0.03 ng/mL (< 0.04) 06/14/17 00:33 Triglycerides 258 mg/dL (< 150) H 06/14/17 00:33 Entire Visit Hgb 12.0 g/dL (11.5-15.4) 06/14/17 00:33 Hct 37.2 % (35.3-44.9) 06/14/17 00:33 PT 11.1 Seconds (9.4-12.1) 06/13/17 12:43 Total Bilirubin 0.6 mg/dL (0.3-1.0) 06/13/17 12:43 AST 30 Units/L (13-39) 06/13/17 12:43 ALT 23 Units/L (7-52) 06/13/17 12:43 Lipase 19 Units/L (11-82) 06/13/17 12:43 - ABG ABG results: PT/INR, D-dimer PT 11.1 Seconds (9.4-12.1) 06/13/17 12:43 - Impressions Impressions Echocardiogram 06/14/17 15:00 Impressions: LVEF 60%. Mild left ventricular diastolic dysfunction. Normal right ventricular structure and function. Mild tricuspid regurgitation. Mild pulmonic regurgitation. No pulmonary hypertension. Left Ventricular Wall Motion: Rest Echo Findings All wall segments showed normal motion. Findings: Study Quality * Technically adequate exam. ECG Findings * Normal sinus rhythm. Left Ventricle * LVEF 60%. * Normal LV chamber size, wall thickness and function. * Mild left ventricular diastolic dysfunction. Right Ventricle * Normal right ventricular structure and function. Left Atrium * Normal left atrial size. Right Atrium * Normal right atrial size. Aortic Valve * No aortic regurgitation. * Trileaflet aortic valve. * No aortic stenosis. Mitral Valve * Normal mitral valve structure. * No mitral regurgitation. * No mitral stenosis. Tricuspid Valve * Normal tricuspid valve structure. * Mild tricuspid regurgitation. * Estimated RA pressure is 3 mmHg. * Estimated RVSP is 32 mmHg. * No pulmonary hypertension. Pulmonic Valve * Pulmonic valve is not well visualized. * No pulmonic stenosis. * Mild pulmonic regurgitation. Pulmonary Artery * Pulmonary artery not well visualized. Aorta * Normally sized aortic root. Pericardium * There is no pericardial effusion present. Interatrial Septum * No evidence of PFO by color Doppler. IVC * Normal IVC dimensions and inspiratory collapse. Consult Discharge Plan - Plan Referrals: Alber Harrison MD [Primary Care Provider] - <Darrel Cummings - Last Filed: 06/15/17 17:52> Date of Encounter: 06/15/17 Time of Encounter: 14:00 - Time Spent With Patient Total time spent is greater than 50% in coordination of care (as documented) at patient's floor/unit and/or counseling patient: GI History of Present Illness - Data of Consult Requesting Physician: Libby Keating CNP - Consult Narrative History of present illness: Ms. Bah is a 66 year old female - Constitutional Vitals: Temp Pulse Resp BP Pulse Ox 98.0 F 67 16 121/78 95 06/15/17 16:46 06/15/17 16:46 06/15/17 16:46 06/15/17 16:46 06/15/17 16:46 Results - Labs CBC & Chem 7: 06/14/17 00:33 06/14/17 00:33 Labs: Last Result Calcium 8.9 mg/dL (8.6-10.3) 06/14/17 00:33 Troponin I < 0.03 ng/mL (< 0.04) 06/14/17 00:33 Triglycerides 258 mg/dL (< 150) H 06/14/17 00:33 Entire Visit Hgb 12.0 g/dL (11.5-15.4) 06/14/17 00:33 Hct 37.2 % (35.3-44.9) 06/14/17 00:33 PT 11.1 Seconds (9.4-12.1) 06/13/17 12:43 Total Bilirubin 0.6 mg/dL (0.3-1.0) 06/13/17 12:43 AST 30 Units/L (13-39) 06/13/17 12:43 ALT 23 Units/L (7-52) 06/13/17 12:43 Lipase 19 Units/L (11-82) 06/13/17 12:43 - ABG ABG results: PT/INR, D-dimer PT 11.1 Seconds (9.4-12.1) 06/13/17 12:43 - Impressions Impressions Echocardiogram 06/14/17 15:00 Impressions: LVEF 60%. Mild left ventricular diastolic dysfunction. Normal right ventricular structure and function. Mild tricuspid regurgitation. Mild pulmonic regurgitation. No pulmonary hypertension. Left Ventricular Wall Motion: Rest Echo Findings All wall segments showed normal motion. Findings: Study Quality * Technically adequate exam. ECG Findings * Normal sinus rhythm. Left Ventricle * LVEF 60%. * Normal LV chamber size, wall thickness and function. * Mild left ventricular diastolic dysfunction. Right Ventricle * Normal right ventricular structure and function. Left Atrium * Normal left atrial size. Right Atrium * Normal right atrial size. Aortic Valve * No aortic regurgitation. * Trileaflet aortic valve. * No aortic stenosis. Mitral Valve * Normal mitral valve structure. * No mitral regurgitation. * No mitral stenosis. Tricuspid Valve * Normal tricuspid valve structure. * Mild tricuspid regurgitation. * Estimated RA pressure is 3 mmHg. * Estimated RVSP is 32 mmHg. * No pulmonary hypertension. Pulmonic Valve * Pulmonic valve is not well visualized. * No pulmonic stenosis. * Mild pulmonic regurgitation. Pulmonary Artery * Pulmonary artery not well visualized. Aorta * Normally sized aortic root. Pericardium * There is no pericardial effusion present. Interatrial Septum * No evidence of PFO by color Doppler. IVC * Normal IVC dimensions and inspiratory collapse. - Attending Attestation I examined this patient and my medical decision-making was reviewed with the [employer]EN[employer] REPAIR TECHNICIAN. I agree with the documented findings, disposition and treatment plan as described except to the extent set forth below. Chest pain cardiac workup is negative EGD to rule out gastric/esophageal causes for chest pain
--- NOTE | 2017-06-15 14:54 | Anesthesia Evaluation PreOp ---
Date of Encounter: 06/15/17 Time of Encounter: 14:52 - Past History Planned Operation: EGD Cardiac History: Hyperlipidemia, Other (H/O blood clots) Pulmonary History: Denies Any Significant HX SALES LEAD History: Denies Any Significant HX Other Medical History: GERD Anesthesia History: No Prior Anesthetic Complications, Past Anesthesia Alcohol Use: none Drug use: none Medications and Allergies Acetaminophen [Tylenol] 500 mg PO Q6HR PRN 06/13/17 [History] Cholecalciferol (Vitamin D3) [Vitamin D] 2,000 unit PO DAILY 06/13/17 [History] Citalopram Hydrobromide [Citalopram HBr] 40 mg PO DAILY 06/13/17 [History] Ferrous Sulfate [Iron] 325 mg PO DAILY 06/13/17 [History] Ibuprofen [Motrin] 400 - 600 mg PO BID PRN 06/13/17 [History] Krill/Om-3/Dha/Epa/Phospho/Ast [Krill Oil 1,000 mg Softgel] 1 tab PO DAILY 06/13 [History] Lactobacillus Combination No.8 [Adult Probiotic] 1 tab PO DAILY 06/13/17 [ History] Pantoprazole Sodium [Protonix] 20 mg PO DAILY 06/13/17 [History] Rosuvastatin Calcium [Rosuvastatin Calcium] 20 mg PO DAILY 06/13/17 [History] Sennosides [Senna] 8.6 mg PO DAILY PRN 06/13/17 [History] 3 Allergy/AdvReac Type Severity Reaction Status Date / Time Amoxicillin [From Augmentin] Allergy See Verified 06/13/17 15:01 Comments clavulanic acid Allergy See Verified 06/13/17 15:01 [From Augmentin] Comments - Meds/Allergy Pre-op Review Medications Reviewed: Yes Allergies Reviewed: Yes Beta Blockers on Current Med List: No Anesthesia Results - Labs 06/14/17 00:33 06/14/17 00:33 - Imaging EKG: report reviewed (01/22/2015 SINUS RHYTHM NORMAL ECG) Additional studies: 06/15/2017 Stress Impression: Perfusion imaging was negative for ischemia or infarct. Pharmacologic stress ECG is negative for ischemia at level of heart rate achieved. No appreciable change from baseline EKG. Gated EF > 70%. 06/14/2017 Echo Impressions: LVEF 60%. Mild left ventricular diastolic dysfunction. Normal right ventricular structure and function. Mild tricuspid regurgitation. Mild pulmonic regurgitation. No pulmonary hypertension. Anesthesia Exam Vital Signs/O2 Sat, Most Current Temp Pulse Resp BP Pulse Ox 97.9 F 72 16 119/76 93 06/15/17 12:20 06/15/17 12:20 06/15/17 12:20 06/15/17 12:20 06/15/17 12:20 Height: 5'7'' Weight: 173 lbs NPO (# of Hours): 8 Pain Scale: 0 Pain Scale Used: Numeric (1 - 10) - HEENT Pupil (Motor): EOMI Mallampati: II Teeth: Normal Oral Opening: Greater than 3 - SALES LEAD LOC: Oriented SALES LEAD Motor: Normal RUE, Normal LUE, Normal RLE, Normal LLE, Normal Face SALES LEAD Sensory: Normal: RUE, LUE, RLE, LLE, Face - Cardiac Rhythm: Regular Murmur: None - Pulmonary Breath Sounds: bilateral Clear Respiratory Effort: Symmetrical Anesthesia Assess/Plan ASA Score: 2 Modified [place] Scale for Level of Consciousness: Cooperative, oriented, and tranquil Anesthetic Plan: MAC Monitoring Plan: Standard Monitors
[2017-06-15] MEDS ORDERED: *HR* Propofol 200 MG/20 ML VIAL IVP ONE (15:23)
[2017-06-15] MEDS ORDERED: Lidocaine -MPF 2% 2 ML VIAL ONE (15:23)
--- NOTE | 2017-06-15 15:35 | Anesthesia Evaluation Post Op ---
Date of Encounter: 06/15/17 Time of Encounter: 15:34 - Vital Signs Vital Signs: 96/51, HR 69, SpO2 98%, RR14 - Lungs Lungs: Clear Ascult./Percussion - Airway Airway: Non-obstructed - Cardiovascular Regular Rate - Mental Status Mental Status: Alert & Oriented, Answers Appropriately - Pain Pain Scale: 0 Pain Scale used: Karmen (Faces) - Nausea Vomiting Nausea Vomiting: Not Present - Hydration Hydration: NPO, Has not voided - Discharge PostOp Status: Transfer Patient to floor
[2017-06-15 16:47] VITALS: BP 121/78
--- NOTE | 2017-06-15 17:02 | Discharge Summary ---
Date of Encounter: 06/15/17 Time of Encounter: 17:00 - Discharge Diagnosis (1) Dysphagia Priority: Primary Status: Acute Comments: Patient complained of food sticking in her esophagus at times. EGD was completed Impression of grade a reflux esophagitis Normal stomach Normal mucosa was found the entire esophagus which was biopsied Continue PPI daily GI recommends if chest pain persists an esophageal mano Qualifiers: Dysphagia type: unspecified Qualified Code(s): R13.10 - Dysphagia, unspecified (2) Chest pain Priority: Primary Status: Acute Comments: Atypical Chest pain of unclear etiology, she described the chest pain as pressure in the epigastrium radiating around and under her breasts to the mid back like a band or a bra that is too tight. The chest pain improved with nitroglycerin although she did develop a severe headache. No prior history of coronary artery disease or [place]. Last cardiac workup in 2012 found to be negative for ischemia or wall motion abnormalities and ejection fraction of 60% . Chest x-ray negative, troponins negative. Patient has a history of hyperlipidemia and GERD; giving the clinical presentation of the chest pain could also be of a GI cause. Need to rule out of ACS EKG with no ischemia noted Continue aspirin Fasting lipids with triglycerides of 258 and HDL 37 Resume home medications 2D Echo reviewed with LVEF of 60%, mild left ventricular diastolic dysfunction, normal right ventricular structure and function, mild tricuspid, pulmonic regurgitation with no pulmonary hypertension Cardiac diet Stress test completed with no evidence of ischemia Qualifiers: Chest pain type: unspecified Qualified Code(s): R07.9 - Chest pain, unspecified (3) GERD (gastroesophageal reflux disease) Priority: Primary Status: Acute Comments: See note above, continue PPI Qualifiers: Esophagitis presence: esophagitis presence not specified Qualified Code(s) : K21.9 - Gastro-esophageal reflux disease without esophagitis (4) HLD (hyperlipidemia) Priority: Secondary Status: Chronic Comments: Continue home medication lipid panel reviewed and discussed with the patient Qualifiers: Hyperlipidemia type: unspecified Qualified Code(s): E78.5 - Hyperlipidemia , unspecified - Discharge Medications Home Medications: Acetaminophen [Tylenol] 500 mg PO Q6HR PRN 06/13/17 [History] Cholecalciferol (Vitamin D3) [Vitamin D3] 2,000 unit PO DAILY 06/13/17 [History] Citalopram Hydrobromide [Citalopram HBr] 40 mg PO DAILY 06/13/17 [History] Ferrous Sulfate [Iron] 325 mg PO DAILY 06/13/17 [History] Ibuprofen [Motrin] 400 - 600 mg PO BID PRN 06/13/17 [History] Krill/Om-3/Dha/Epa/Phospho/Ast [Krill Oil 1,000 mg Softgel] 1 tab PO DAILY 06/13 [History] Lactobacillus Combination No.8 [Adult Probiotic] 1 tab PO DAILY 06/13/17 [ History] Pantoprazole Sodium [Protonix] 20 mg PO DAILY 06/13/17 [History] Rosuvastatin Calcium 20 mg PO DAILY 06/13/17 [History] Sennosides [Senna] 8.6 mg PO DAILY PRN 06/13/17 [History] Allergies/Adverse Reactions: 3 Allergy/AdvReac Type Severity Reaction Status Date / Time Amoxicillin [From Augmentin] Allergy See Verified 06/13/17 15:01 Comments clavulanic acid Allergy See Verified 06/13/17 15:01 [From Augmentin] Comments Procedures/tests Complete & Pending: Procedures Performed prior 72 hours Category Date Time Status NM shannan perf SPECT multi [NM] Routine Exams 06/14/17 09:00 Taken ECG 12 lead ECG [ECG] Routine Y 06/13/17 14:55 Completed EV echocardiogram Routine Y 06/14/17 15:00 Completed SP pharm nuclear stress Routine Y 06/14/17 09:00 Completed Date of admission: 06/13/17 14:35 Primary care physician: Alber Harrison MD Consults: 06/14/17 10:43 Consult to Gastroenterology [CONS] Routine Consulting Provider: [facility] [place] Reason for Consult: gerd, dysphagia Time Notified: 10:43 Call Completed: Yes Discharging clinician: Milady Anaya Anticipated date of discharge: 06/15/17 - Patient Status Disposition: Home, Self-Care Condition: Good Overall status at discharge: patient is back to baseline - Discharge Instructions Follow Up With: Alber Harrison MD [Primary Care Provider] - - Diet and Activity Activity: resume usual activities as tolerated Diet: advance to your usual diet Hospital course: Ms. Bah is a 66 year old female - Time Spent with Patient Total time spent providing and/or coordinating discharge services: - Constitutional Vitals: Temp Pulse Resp BP Pulse Ox 98.0 F 67 16 121/78 95 06/15/17 16:46 06/15/17 16:46 06/15/17 16:46 06/15/17 16:46 06/15/17 16:46 General appearance: Present: cooperative, A&O X 3, pleasant, no acute distress, answers questions appropriately - Head Head exam: Present: atraumatic, normocephalic - Eye Eye exam: Present: PERRL, conjuntiva pink, sclera anicteric Pupils: Present: PERRL - Neck Neck exam general surgery: Present: supple, trachea midline. Absent: lymphadenopathy - Respiratory Respiratory exam: Present: CTAB. Absent: accessory muscle use, rales, rhonchi, wheezes - Cardiovascular Cardiovascular exam: Present: RRR, +S1, +S2. Absent: diastolic murmur, gallop, rubs, systolic murmur - GI/Abdominal GI/Abdominal exam: Present: normal bowel sounds, soft, no peritoneal signs. Absent: distended, tenderness - Extremities Exam Extremities exam: Present: warm, radial pulses palpable and symmetrical. Absent : calf tenderness, cyanotic, pedal edema - Neurological Exam Neurological exam: Present: CN II-XII intact, oriented X3, no focal deficits. Absent: pronater drift, facial droop, speech deficit - Skin Skin exam: Present: dry, intact
[2017-06-15] MEDS: Aspirin 81 MG TAB.CHEW PO SCH (17:17)
[2017-06-15] MEDS: Cholecalciferol (D-3) 1,000 UNIT TABLET PO SCH (17:18)
--- NOTE | 2017-06-16 17:06 | Electrocardiograph Report ---
[address] [address] Test Date: 2017-06-13 Pat Name: Jemima Bah Department: 104 Room: 3B22 Gender: F Auto Body Repair Estimator: MARCY : 1950 Requested By: Slim Cao Order Number: [id number] Reading MD: Eran Zimmer Measurements Intervals [place] Rate: 71 P: 29 GA: 120 QRS: 30 QRSD: 92 T: 57 QT: 392 QTc: 415 Interpretive Statements SINUS RHYTHM Electronically Signed On 06-16-2017 17:04:41 EST by Eran Zimmer
--- NOTE | 2017-06-16 17:08 | Electrocardiograph Report ---
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
== END 2017-06-15 18:15 | disposition home or self-care (01) ==
LOC: EMEROO 12:18 → 3BNU 12:18
PROVIDERS: ADMIT Internal Medicine; ATTEND Registered Nurse
PROC: ENDOEBX (2017-06-15 14:30)